=== PATIENT | male | born 1980 | race Caucasian/White ===

== ENCOUNTER 2016-10-09 13:38 | Inpatient (IN) | payer MEDICARE, OTHER ==
[~2016-10-09] VITALS: Ht 167.6 cm; Wt 87.2 kg
[2016-10-09 13:46] VITALS: BP 114/69; PULSE 132; RESP 20; TEMP 98.7; O2SAT 95
[2016-10-09 13:54] VITALS: BP 114/69; PULSE 127; RESP 18; TEMP 98.7; O2SAT 96
[2016-10-09] MEDS ORDERED: LORazepam 2 MG/ML VIAL IV ONE (14:00)
[2016-10-09] MEDS ORDERED: HALOPERIDOL LACTATE 5 MG/ML AMP IM ONE (14:00)
--- NOTE | 2016-10-09 14:07 | PD ---
HPI Chief Complaint: Psychiatric Symptoms Time Seen by Provider: 13:44 Travel History International Travel<30 days: No Contact w/Intl Traveler<30days: No Traveled to known affect area: No History of Present Illness HPI The patient is a 36-year-old male who presents to the emergency department via EMS as a Clay act. According to the police affidavit the patient was at home, stating that he saw his father and the picture of Martin. The patient was acting erratically, therefore, the patient's mother and her boyfriend called the police. The police state when they arrived the patient was somewhat disruptive, yelling for his father to come out of the picture. The patient does state that his father is alive, was in the picture of Martin, and was able to move the pictures eyes. The patient denies any history of schizophrenia, hallucinations, or previous delusions. The patient does have a history of seizures, had his last seizure at 5 AM according to the police, from the mother' s report. The patient does take Dilantin for a history of seizures. The patient denies any physical complaints except for right sided deficit secondary to cerebral palsy. He denies any acute chest pain, shortness breath, nausea, vomiting, or abdominal pain. He received Ativan 2 mg IM by EMS prior to arrival , however, upon arrival the patient is still yelling and declaring that his father was in the picture of Martin. PFSH Past Medical History Seizures: Yes Tetanus Vaccination: > 5 Years Influenza Vaccination: Yes ?: Not Social History Alcohol Use: No Tobacco Use: No Substance Use: Yes (MARIJUANA) Allergies-Medications (Allergen,Severity, Reaction): Coded Allergies: No Known Allergies (Unverified , 10/09/16) Review of Systems Except as stated in HPI: all other systems reviewed are Neg General / Constitutional: No: Fever HENT: No: Lightheadedness Cardiovascular: No: Chest Pain or Discomfort Respiratory: No: Shortness of Breath Gastrointestinal: No: Nausea, Vomiting, Abdominal Pain Musculoskeletal: No: Weakness Neurologic: Positive: Change in Mentation, Seizures Psychiatric: Positive: Other (patient is having hallucinations/delusions that his father is in a picture of Martin) Physical Exam Narrative GENERAL: Awake, alert, nontoxic-appearing 36-year-old male who appears his stated age and does appear somewhat psychotic. SKIN: Warm and dry. HEAD: Atraumatic. Normocephalic. EYES: Pupils equal and round. Pupils are 3 mm bilateral and reactive. ENT: No nasal bleeding or discharge. Mucous membranes pink and moist. NECK: Trachea midline. No JVD. CARDIOVASCULAR: Regular, tachycardic with a heart rate of 120. RESPIRATORY: No accessory muscle use. Clear to auscultation. Breath sounds equal bilaterally. GASTROINTESTINAL: Abdomen soft, non-tender, nondistended. No rebound tenderness. MUSCULOSKELETAL: The right wrist is flexed, he is unable to extend it. NEUROLOGICAL: Awake and alert. No obvious cranial nerve deficits. Motor grossly within normal limits. Normal speech. PSYCHIATRIC: Appears somewhat psychotic. Declined that his father is a coward and in picture of Martin. Data Data Last Documented VS Vital Signs Date Time Temp Pulse Resp B/P Pulse Ox O2 Delivery O2 Flow Rate FiO2 10/09/16 15:09 101 18 108/67 96 Room Air 10/09/16 13:54 98.7 Orders Complete Blood Count With Diff (10/09/16 13:58) Comprehensive Metabolic Panel (10/09/16 13:58) Thyroid Stimulating Hormone (10/09/16 13:58) Urinalysis - C+S If Indicated (10/09/16 13:58) Drug Screen, Random Urine (10/09/16 13:58) Electrocardiogram (10/09/16 13:58) Iv Access Insert/Monitor (10/09/16 13:58) Ecg Monitoring (10/09/16 13:58) Phenytoin (Dilantin) (10/09/16 13:58) Psych Screen (10/09/16 13:58) Haloperidol Inj (Haldol Inj) (10/09/16 14:00) Lorazepam Inj (Ativan Inj) (10/09/16 14:00) Ct Brain W/O Iv Contrast(Rout) (10/09/16 ) Sodium Chlor 0.9% 1000 Ml Inj (Ns 1000 M (10/09/16 15:30) Creatine Kinase (Cpk) (10/09/16 15:31) Labs Laboratory Tests Test 10/09/16 14:11 White Blood Count 16.4 TH/MM3 Red Blood Count 5.39 MIL/MM3 Hemoglobin 16.4 GM/DL Hematocrit 47.8 % Mean Corpuscular Volume 88.6 FL Mean Corpuscular Hemoglobin 30.4 PG Mean Corpuscular Hemoglobin 34.3 % Concent Red Cell Distribution Width 13.3 % Platelet Count 234 TH/MM3 Mean Platelet Volume 8.9 FL Neutrophils (%) (Auto) 88.3 % Lymphocytes (%) (Auto) 4.9 % Monocytes (%) (Auto) 6.2 % Eosinophils (%) (Auto) 0.1 % Basophils (%) (Auto) 0.5 % Neutrophils # (Auto) 14.5 TH/MM3 Lymphocytes # (Auto) 0.8 TH/MM3 Monocytes # (Auto) 1.0 TH/MM3 Eosinophils # (Auto) 0.0 TH/MM3 Basophils # (Auto) 0.1 TH/MM3 CBC Comment DIFF FINAL Differential Comment Sodium Level 142 MEQ/L Potassium Level 3.9 MEQ/L Chloride Level 106 MEQ/L Carbon Dioxide Level 20.8 MEQ/L Anion Gap 15 MEQ/L Blood Urea Nitrogen 18 MG/DL Creatinine 2.06 MG/DL Estimat Glomerular Filtration 37 ML/MIN Rate Random Glucose 158 MG/DL Calcium Level 9.2 MG/DL Total Bilirubin 0.4 MG/DL Aspartate Amino Transf 24 U/L (AST/SGOT) Alanine Aminotransferase 38 U/L (ALT/SGPT) Alkaline Phosphatase 124 U/L Total Creatine Kinase 285 U/L Total Protein 8.1 GM/DL Albumin 4.4 GM/DL Thyroid Stimulating Hormone 0.972 uIU/ML 3rd Gen Phenytoin (Dilantin) Level 9.8 MCG/ML MDM Medical Decision Making Medical Screen Exam Complete: Yes Emergency Medical Condition: Yes Medical Record Reviewed: Yes Interpretation(s) EKG reveals sinus tachycardia with a heart rate of 116. Nonspecific ST-T wave changes. Last Impressions Head CT 10/09/16 0000 Signed Impressions: Service Date/Time: Sunday, October 09, 2016 14:28 - CONCLUSION: No acute intracranial process. Abnormal area of encephalomalacia with accompanying dilatation of the left lateral ventricle in the left parietal deep white matter extending into the basal ganglia most likely secondary to remote insult. Chuckie Coreas MD Laboratory Tests Test 10/09/16 14:11 White Blood Count 16.4 TH/MM3 Red Blood Count 5.39 MIL/MM3 Hemoglobin 16.4 GM/DL Hematocrit 47.8 % Mean Corpuscular Volume 88.6 FL Mean Corpuscular Hemoglobin 30.4 PG Mean Corpuscular Hemoglobin 34.3 % Concent Red Cell Distribution Width 13.3 % Platelet Count 234 TH/MM3 Mean Platelet Volume 8.9 FL Neutrophils (%) (Auto) 88.3 % Lymphocytes (%) (Auto) 4.9 % Monocytes (%) (Auto) 6.2 % Eosinophils (%) (Auto) 0.1 % Basophils (%) (Auto) 0.5 % Neutrophils # (Auto) 14.5 TH/MM3 Lymphocytes # (Auto) 0.8 TH/MM3 Monocytes # (Auto) 1.0 TH/MM3 Eosinophils # (Auto) 0.0 TH/MM3 Basophils # (Auto) 0.1 TH/MM3 CBC Comment DIFF FINAL Differential Comment Sodium Level 142 MEQ/L Potassium Level 3.9 MEQ/L Chloride Level 106 MEQ/L Carbon Dioxide Level 20.8 MEQ/L Anion Gap 15 MEQ/L Blood Urea Nitrogen 18 MG/DL Creatinine 2.06 MG/DL Estimat Glomerular Filtration 37 ML/MIN Rate Random Glucose 158 MG/DL Calcium Level 9.2 MG/DL Total Bilirubin 0.4 MG/DL Aspartate Amino Transf 24 U/L (AST/SGOT) Alanine Aminotransferase 38 U/L (ALT/SGPT) Alkaline Phosphatase 124 U/L Total Creatine Kinase 285 U/L Total Protein 8.1 GM/DL Albumin 4.4 GM/DL Thyroid Stimulating Hormone 0.972 uIU/ML 3rd Gen Phenytoin (Dilantin) Level 9.8 MCG/ML Differential Diagnosis Differential diagnosis includes psychosis, encephalitis, meningitis, paranoid schizophrenia, substance induced mood disorder, Dilantin toxicity, frontal lobe tumor. Narrative Course IV was established, labs are drawn and sent, and the patient was placed on cardiac telemetry monitoring and continuous pulse oximetry monitoring. EKG was ordered and interpreted. The patient received Ativan 2 mg intravenously and Haldol [address] of the brain was ordered. Psychiatric evaluation was ordered. CT the brain reveals chronic changes and questionable remote infarct, encephalomalacia, but no acute findings. Lab work is unremarkable except for mildly elevated creatinine at 2.06. CPK was ordered, 285, no evidence of rhabdomyolysis. The patient was administered IV fluids. The patient's heart rate did come down into the 90s. Patient is medically cleared to be evaluated by psychiatry. Disposition as per psych. Diagnosis Primary Impression: Psychosis Qualified Code: F29 - Psychosis, unspecified psychosis type Additional Impression: Acute kidney injury Condition: Stable Jefry Nuno MD Oct 09, 2016 14:07
[2016-10-09 14:29] LABS: AUTOMATED NEUTROPHIL # 14.5 TH/MM3 (1.8-7.7); BASOPHIL # 0.1 TH/MM3 (0-0.2); BASOPHIL % 0.5 % (0.0-2.0); EOSINOPHIL % 0.1 % (0.0-4.0); HEMATOCRIT 47.8 % (39.0-51.0); HEMO FLAGS DIFF FINAL; LYMPH % 4.9 % (9.0-44.0); LYMPHOCYTE # 0.8 TH/MM3 (1.0-4.8); MEAN CELL VOLUME 88.6 FL (80.0-100.0); MEAN CORPUSCULAR HEMOGLOBIN 30.4 PG (27.0-34.0); MEAN CORPUSCULAR HGB CONC 34.3 % (32.0-36.0); MONO % 6.2 % (0.0-8.0); NEUT % 88.3 % (16.0-70.0); PLATELET COUNT 234 TH/MM3 (150-450); RED BLOOD COUNT 5.39 MIL/MM3 (4.50-5.90); RED CELL DISTRIBUTION WIDTH 13.3 % (11.6-17.2); WHITE BLOOD COUNT 16.4 TH/MM3 (4.0-11.0)
[2016-10-09 14:57] LABS: ALT (GPT) 38 U/L (12-78); ANION GAP 15 MEQ/L (5-15); AST (GOT) 24 U/L (15-37); BICARBONATE 20.8 MEQ/L (21.0-32.0); BLOOD UREA NITROGEN 18 MG/DL (7-18); CHLORIDE 106 MEQ/L (98-107); GLOMERULAR FILTRATION RATE 37 ML/MIN (>89); SODIUM (NA) 142 MEQ/L (136-145)
--- NOTE | 2016-10-09 15:03 | RADRPT ---
EXAM DATE/TIME: 10/09/2016 14:28 [facility] COMPARISON: No previous studies available for comparison. INDICATIONS : Altered mental status after possible seizure today. RADIATION DOSE: 56.35 CTDIvol (mGy) MEDICAL HISTORY : Seizures. SURGICAL HISTORY : None. ENCOUNTER: Initial ACUITY: 1 day PAIN SCALE: Non-responsive LOCATION: cranial TECHNIQUE: Multiple contiguous axial images were obtained of the head. Using automated exposure control and adj ustment of the mA and/or kV according to patient size, radiation dose was kept as low as reasonably a chievable to obtain optimal diagnostic quality images. FINDINGS: B. midline structures and major anatomic landmarks are correctly situated with no evidence of intracr anial hemorrhage extracerebral defect mass or acute infarct. There is an area of encephalomalacia low density in the paraventricular region deep white matter of the left hemisphere parietal region with asymmetric dilatation of the left lateral ventricle and extension into the potential region of the ex ternal capsule of the left basal ganglia. This appears to represent a remote insult with secondary en cephalomalacia. CONCLUSION: No acute intracranial process. Abnormal area of encephalomalacia with accompanying dilatation of the left lateral ventricle in the left parietal deep white matter extending into the basal ganglia most l ikely secondary to remote insult. Chuckie Coreas MD on October 09, 2016 at 15:00 Board Certified Radiologist. This report was verified electronically.
[2016-10-09 15:05] LABS: ALKALINE PHOSPHATASE 124 U/L (45-117); TOTAL BILIRUBIN ADULT 0.4 MG/DL (0.2-1.0)
[2016-10-09 15:09] VITALS: BP 108/67; PULSE 101; RESP 18; O2SAT 96
[2016-10-09 15:09] LABS: POTASSIUM 3.9 MEQ/L (3.5-5.1)
[2016-10-09] MEDS ORDERED: SODIUM CHLOR 0.9% 1000 ML INJ 1,000 ML IV ONE (15:30)
[2016-10-09] MEDS ORDERED: LORazepam 2 MG/ML VIAL IV PUSH ONE (17:15)
[2016-10-09 18:13] LABS: BLOOD, URINE SMALL (NEG); COMMENT (UR) CULT NOT INDICATED; CULTURE IF INDICATED CULT NOT INDICATED; GLUCOSE,URINE NEG (NEG); KETONE, URINE TRACE mg/dL (NEG); MUCUS URINE MANY /lpf (OCC); NITRITE,URINE NEG (NEG); PH, URINE 5.5 (5.0-8.5); SQUAMOUS EPITHELIAL CELL URINE <1 /hpf (0-5); URINE COLOR YELLOW (YELLW/STRAW)
[2016-10-09 18:16] LABS: AMPHETAMINE, URINE NEG (NEG); BARBITURATES, URINE NEG (NEG); COCAINE, URINE NEG (NEG)
[2016-10-09 18:35] VITALS: BP 114/87; PULSE 110; RESP 20; TEMP 98.3; O2SAT 98
[2016-10-09] MEDS ORDERED: PHEN100C PO (18:42)
[2016-10-09 22:36] VITALS: BP 122/59; PULSE 96; RESP 18; TEMP 97.1; O2SAT 98
[2016-10-10] MEDS ORDERED: LORazepam 2 MG/ML VIAL IM ONE (02:00)
[2016-10-10] MEDS ORDERED: HALOPERIDOL LACTATE 5 MG/ML AMP IM ONE (02:00)
[2016-10-10 02:36] VITALS: BP 173/70; PULSE 117; RESP 19; TEMP 97.8; O2SAT 98
[2016-10-10 06:00] VITALS: BP 148/71; PULSE 95; RESP 18; O2SAT 98
--- NOTE | 2016-10-10 13:37 | EKG ---
Date Performed: 10/09/2016 Time Performed: 14:07:35 PTAGE: 36 years EKG: SINUS TACHYCARDIA NONSPECIFIC ST & T-WAVE ABNORMALITY CLINICAL CORRELATION RECOMMENDED ABNO RMAL RHYTHM ECG NO PREVIOUS TRACING DOCTOR: Jonatan Hart Interpretating Date/Time 10/10/2016 13:35:58
--- NOTE | 2016-10-10 13:44 | PD ---
History of Present Illness Chief Complaint: Psychiatric Symptoms Time Seen by Provider: 13:00 Travel History International Travel<30 Days: No Contact w/Intl Traveler<30days: No Known affected area: No Legal Status Legal Status: Clay Act Clay Act Signed By: Signed by [place] [employer] Officer Yovanny Payton # [id number]. Clay Act Comment: Signed by [employer] Officer Yovanny Payton # [id number]. History of Present Illness: History of Present Illness The patient is a 36-year-old male with no psychiatric history and history of cerebral palsy and seizure disorder who presents to the emergency department via EMS as a Clay act. The patient was acting erratically, therefore, the patient's mother and her boyfriend called the police. According to the police affidavit the patient was at home, stating that he saw his father and the picture of Martin. The police state when they arrived the patient was somewhat disruptive, yelling for his father to come out of the picture. As per ED documentation " The patient does state that his father is alive, was in the picture of Martin, and was able to move the pictures eyes. He received Ativan 2 mg IM by EMS prior to arrival, however, upon arrival the patient is still yelling and declaring that his father was in the picture of Martin" This patient has required emergency medications x 2 since being in ED due to agitation and potential to harm self. He has required restraints as well. Patient is seen in J pod. Asleep but awakens easily. Disheveled appearance in hospital attire. He is verbal, oriented. He states " I want to know what is happening?. He continues to talk about being the son of Martin and that " Sofia and Martin are white and they are my parents". He states that he was at home and " I was looking on the computer at something and then things happened. states he was looking at pictures of little girls. He also states that " I started to talk to the picture of Martin and it's my father and I can see the lips moving and he can hear what I say". So is a+ b = c? Then c+d=e? " As per EMR there is no prior contact with [facility] psychiatry. negative toxicology but hx of marijuana use. Staff have contacted his mother who report that on the day of admission he was talking to the picture of Martin and asking him" why he had done these these things". as well as taking his clothes off, walking on the floor on his knees. PFSH Past Medical History Seizures: Yes Tetanus Vaccination: > 5 Years Influenza Vaccination: Yes ?: Not Psychiatric History Psychiatric History Hx Psychiatric Treatment: States that he has been seen by psychiatrists before but cannot remember where or why. History of Inpatient Treatment: Yes (unable to verify) Guns or firearms in home: No Social History Single unemployed male who is living with his mother and her boyfriend. Hx Alcohol Use: No Hx Tobacco Use: No Hx Substance Use: Yes (Pt states has not smoked marijuanna in apprxo 3 weeks.) Substance Use Type: Marijuana Hx of Substance Use Treatment: No Family Psychiatric History unknown Allergies-Medications (Allergen,Severity, Reaction): Coded Allergies: No Known Allergies (Unverified , 10/09/16) Per mother - Zulemadevan Garcia [phone]. Reported Meds & Prescriptions Reported Meds & Active Scripts Active Reported Phenytoin Extended 100 Mg Cap 400 Mg PO DAILY Review of Systems Constitutional: DENIES: Diaphoretic episodes, Fatigue, Fever, Weight gain, Weight loss, Chills, Dizziness, Change in appetite, Night Sweats Endocrine: DENIES: Heat/cold intolerance, Polydipsia, Polyuria, Polyphagia Eyes: DENIES: Blurred vision, Diplopia, Eye inflammation, Eye pain, Vision loss , Photosensitivity, Double Vision Ears, nose, mouth, throat: DENIES: Tinnitus, Hearing loss, Vertigo, Nasal discharge, Oral lesions, Throat pain, Hoarseness, Ear Pain, Running Nose, Epistaxis, Sinus Pain, Toothache, Odynophagia Respiratory: DENIES: Apneas, Cough, Snoring, Wheezing, Hemoptysis, Sputum production, Shortness of breath Cardiovascular: DENIES: Chest pain, Palpitations, Syncope, Dyspnea on Exertion , PND, Lower Extremity Edema, Orthopnea, Claudication Gastrointestinal: DENIES: Abdominal pain, Black stools, Bloody stools, Constipation, Diarrhea, Nausea, Vomiting, Difficulty Swallowing, Anorexia Genitourinary: DENIES: Sexual dysfunction, Urinary frequency, Urinary incontinence, Urgency, Hematuria, Dysuria, Nocturia, Penile Discharge, Testicular Pain, Testicular Swelling Musculoskeletal: COMPLAINS OF: Muscle aches, Back pain Integumentary: DENIES: Abnormal pigmentation, Nail changes, Pruritus, Rash Hematologic/lymphatic: DENIES: Bruising, Lymphadenopathy Immunologic/allergic: DENIES: Eczema, Urticaria Neurologic: COMPLAINS OF: Abnormal gait Psychiatric: COMPLAINS OF: Hallucinations, Agitation, Delusions Exam Alert: Yes [place]: Person, Place Mood: Calm Affect: Other (variable) Speech: Clear, Slurred (slight slurred. ) Eye Contact: Normal Memory Intact: Comment (not tested) Hallucinations: Auditory, Visual Delusions: Yes Delusion Type: Other (roman catholic) Suicidal: Ideation (deneis any) Homicidal: Ideation (deneis any) Insight/Judgement poor. poor MDM Medical Decision Making Medical Record Reviewed: Yes Assessment/Plan 36 year old male with hx of seizure disorder, cerebral palsy who resents to ED under a BA after he became agitated at home. he has been insisting that he is the son of Elma, that he can talk with them, that the picture on the wall can talk, Mother reports this occurred within 24 of visit to ED. Tai has been agitated in ED and has required both medications and restraints.At this time inpatient psychiatric tretametn is recommended in order to evaluate, treat and maintain safety. Orders Complete Blood Count With Diff (10/09/16 13:58) Comprehensive Metabolic Panel (10/09/16 13:58) Thyroid Stimulating Hormone (10/09/16 13:58) Urinalysis - C+S If Indicated (10/09/16 13:58) Drug Screen, Random Urine (10/09/16 13:58) Electrocardiogram (10/09/16 13:58) Iv Access Insert/Monitor (10/09/16 13:58) Ecg Monitoring (10/09/16 13:58) Phenytoin (Dilantin) (10/09/16 13:58) Psych Screen (10/09/16 13:58) Haloperidol Inj (Haldol Inj) (10/09/16 14:00) Lorazepam Inj (Ativan Inj) (10/09/16 14:00) Ct Brain W/O Iv Contrast(Rout) (10/09/16 ) Sodium Chlor 0.9% 1000 Ml Inj (Ns 1000 M (10/09/16 15:30) Creatine Kinase (Cpk) (10/09/16 15:31) Lorazepam Inj (Ativan Inj) (10/09/16 17:15) ^ 1:1 Precautions (10/09/16 19:31) Vital Signs (Adult) DESTINY.Q4H (10/09/16 19:34) ^ Seizure Precautions (10/09/16 19:34) Haloperidol Inj (Haldol Inj) (10/10/16 02:00) Lorazepam Inj (Ativan Inj) (10/10/16 02:00) Restraints Violent (10/10/16 03:54) Diet Regular Basic (10/10/16 Breakfast) Diet Regular Basic (10/10/16 Lunch) Results Vital Signs Date Time Temp Pulse Resp B/P Pulse Ox O2 Delivery O2 Flow Rate FiO2 10/10/16 06:00 95 18 148/71 98 10/10/16 02:36 97.8 117 19 173/70 98 Room Air 10/09/16 22:36 97.1 96 18 122/59 98 Room Air 10/09/16 18:35 98.3 110 20 114/87 98 Room Air 10/09/16 15:09 101 18 108/67 96 Room Air 10/09/16 13:54 98.7 127 18 114/69 96 Room Air 10/09/16 13:46 98.7 132 20 114/69 95 Laboratory Tests Test 10/09/16 10/09/16 14:11 17:40 White Blood Count 16.4 Red Blood Count 5.39 Hemoglobin 16.4 Hematocrit 47.8 Mean Corpuscular Volume 88.6 Mean Corpuscular Hemoglobin 30.4 Mean Corpuscular Hemoglobin 34.3 Concent Red Cell Distribution Width 13.3 Platelet Count 234 Mean Platelet Volume 8.9 Neutrophils (%) (Auto) 88.3 Lymphocytes (%) (Auto) 4.9 Monocytes (%) (Auto) 6.2 Eosinophils (%) (Auto) 0.1 Basophils (%) (Auto) 0.5 Neutrophils # (Auto) 14.5 Lymphocytes # (Auto) 0.8 Monocytes # (Auto) 1.0 Eosinophils # (Auto) 0.0 Basophils # (Auto) 0.1 CBC Comment DIFF FINAL Differential Comment Sodium Level 142 Potassium Level 3.9 Chloride Level 106 Carbon Dioxide Level 20.8 Anion Gap 15 Blood Urea Nitrogen 18 Creatinine 2.06 Estimat Glomerular Filtration 37 Rate Random Glucose 158 Calcium Level 9.2 Total Bilirubin 0.4 Aspartate Amino Transf 24 (AST/SGOT) Alanine Aminotransferase 38 (ALT/SGPT) Alkaline Phosphatase 124 Total Creatine Kinase 285 Total Protein 8.1 Albumin 4.4 Thyroid Stimulating Hormone 0.972 3rd Gen Phenytoin (Dilantin) Level 9.8 Urine Color YELLOW Urine Turbidity CLOUDY Urine pH 5.5 Urine Specific [place] 1.027 Urine Protein 100 Urine Glucose (UA) NEG Urine Ketones TRACE Urine Occult Blood SMALL Urine Nitrite NEG Urine Bilirubin NEG Urine Urobilinogen LESS THAN 2.0 Urine Leukocyte Esterase NEG Urine RBC 1 Urine WBC 2 Urine Squamous Epithelial <1 Cells Urine Mucus MANY Microscopic Urinalysis Comment CULT NOT INDICATED Urine Opiates Screen NEG Urine Barbiturates Screen NEG Urine Amphetamines Screen NEG Urine Benzodiazepines Screen NEG Urine Cocaine Screen NEG Urine Cannabinoids Screen NEG Diagnosis Primary Impression: Psychosis Additional Impression: Acute kidney injury Admitting Information Admitting Physician Requests: Admit (Dr. Yuen) Condition: Stable Problem Qualifiers Primary Impression: Psychosis Qualified Code: F29 - Psychosis, unspecified psychosis type Gabby Fung Oct 10, 2016 13:44
[2016-10-10] MEDS ORDERED: MAGNESIUM HYDROXIDE SUSP 30 ML CUP PO PRN (14:15)
[2016-10-10] MEDS: ACETAMINOPHEN 325 MG TAB PO PRN ×2 (14:50→20:28)
[2016-10-10 15:27] VITALS: BP 148/71; PULSE 95; RESP 18; O2SAT 98
[2016-10-10 16:35] VITALS: BP 132/90; PULSE 114; RESP 20; TEMP 98.5; O2SAT 99
[2016-10-10 16:36] VITALS: BP 132/90; PULSE 111; TEMP 98.4
[2016-10-10] MEDS ORDERED: PHENYTOIN SODIUM 100 MG CAP PO STA (18:41)
[2016-10-10] MEDS ORDERED: OLANZapine IM 10 MG VIAL IM ONE (23:00)
[2016-10-10] MEDS ORDERED: diphenhydrAMINE HCL 50 MG/ML VIAL IM ONE (23:00)
[2016-10-11] MEDS ORDERED: OLANZapine IM 10 MG VIAL IM ONE (06:45)
[2016-10-11] MEDS ORDERED: diphenhydrAMINE HCL 50 MG/ML VIAL IM ONE (06:45)
[2016-10-11] MEDS ORDERED: PHENYTOIN SODIUM 100 MG CAP PO SCH (09:00)
[2016-10-11] MEDS ORDERED: BENZTROPINE MESYLATE 2 MG/2 ML VIAL IM PRN (09:30)
[2016-10-11] MEDS ORDERED: diphenhydrAMINE HCL 50 MG CAP PO PRN (09:30)
[2016-10-11] MEDS ORDERED: LORazepam 2 MG/ML VIAL IM PRN (09:30)
[2016-10-11] MEDS ORDERED: BENZTROPINE MESYLATE 1 MG TAB PO PRN (09:30)
--- NOTE | 2016-10-11 10:11 | MH ---
cc: MARCIAL HOLLIDAY MD DATE OF ADMISSION: 10/10/2016 ADMITTING DIAGNOSIS I. Other psychotic disorder, F28. Rule out postictal psychosis, rule out primary psychotic disorder, rule out psychotic disorder due to general medical condition. LEGAL STATUS The patient is presently involuntary and is not capacitated to consent for medications. I have initiated a petition for involuntary psychiatric hospitalization and will request a health care surrogate and guardian advocate. HISTORY OF PRESENT ILLNESS Mr. Garcia is a 36-year-old male with a history of cerebral palsy and seizure disorder but no known past psychiatric history, who presents under a [place] Act by the [place] [employer] alleging that officers responded to a home regarding a disturbance. When the officer endeavored to speak with the patient he screamed and yelled at a picture of Martin on the wall. He said that Martin was his father. He physically resisted the officers. The patient was brought to the psychiatric emergency room and was evaluated by the ED provider as well as the psychiatric nurse practitioner who noted that he was fairly disorganized and recommended admission to the inpatient psychiatric unit. The electronic medical record is reviewed. The patient is seen and examined. The case is discussed with the nurse on the inpatient psychiatric unit. Since arrival on the unit the patient has been persistently agitated and has had to be medicated twice with Zyprexa 10 mg IM along with Benadryl. He had to be placed into locked seclusion this morning because of his ongoing agitation. Just shortly prior to my evaluation, the [facility] informed me that the patient was able to get hold of a rubber glove and tried to insert it into his mouth and swallow it and he had to be temporarily restrained in order to remove the glove from his throat. At the time of my evaluation I note the patient is frankly internally stimulated looking out the window expectantly and talking to himself. He says that he is here because of "a mischarge." He is tending to minimize his psychiatric symptoms but is quite irritable. He denies any ADH. No SI or HI, but the patient is definitely unreliable to contract for safety. He is fairly suspicious and guarded. Regarding the allegations in the [place] Act the patient merely says "I just believe in God." He denies any mood issues. Psychiatric interview is somewhat limited because of the patient's degree of psychiatric impairment. PAST PSYCHIATRIC HISTORY The patient denies a history of psychiatric diagnoses. He says that he has only seen a psychiatrist in the past "for bullshit charges." He denies a history of psychiatric admissions or suicide attempts. FAMILY HISTORY The patient denies a family history of psychiatric illness. CHEMICAL DEPENDENCY HISTORY The patient denies a history of abuse, drugs or alcohol. He denies any use of synthetic drugs. SOCIAL HISTORY The patient describes his living situation as "fine" and then goes on tirade about how he does not belong in the psychiatric hospital. He is single with no children. He is high school educated. He denies any or legal history. PAST MEDICAL HISTORY Includes a history of cerebral palsy and seizure disorder on Dilantin. MEDICATIONS Outpatient medications include Dilantin 400 mg daily. ALLERGIES No known allergies. REVIEW OF SYSTEMS A review of systems is fairly limited because of the patient's degree of psychiatric impairment. He does not describe any headache, vision or hearing changes, chest pain, shortness of breath, bowel or bladder issues. No other somatic complaints reported. PHYSICAL EXAMINATION Physical examination was completed in the emergency room by the ER staff and the patient was medically cleared. On my examination today, the patient appears to be in no acute physical distress. No abnormal motor movements noted. Labs and vital signs reviewed. I note that the patient's CBC is significant for a mild leukocytosis at 16.4. His CMP is remarkable for decreased GFR of 37 as well as an elevated glucose of 158. His alkaline phosphatase is 124. His CK is 285. His Dilantin level is 9.8. His toxicology is negative. His urinalysis has 100 protein and small occult blood as well as trace ketones but no leukocyte esterase or nitrites or white blood cells. A head CT performed in the emergency department reveals dilatation of the left lateral ventricle with underlying encephalomalacia extending into the basal ganglia, likely secondary to remote insult per the report. MENTAL STATUS EXAMINATION The patient is in a hospital gown. He is quite disheveled and malodorous. He does not appear to be maintaining basic hygiene. He is awake and alert and oriented to person only. No abnormal motor movements noted. Language and fund of knowledge are difficult to assess because of his degree of psychiatric impairment and may be somewhat impaired. Mood is quite irritable and affect is restricted and dysphoric. Thought process is perseverative on discharge. He is quite suspicious and guarded and there may be some underlying paranoia. He is frankly internally stimulated although he denies ADH. He does not describe any suicidal or homicidal ideation but is doubtless unreliable to contract for safety in his present state. His insight and judgment are presently quite poor. ASSESSMENT AND PLAN This is a 36-year-old male with uncertain past psychiatric history, who presents under a [place] Act. Since arrival in the emergency department the patient has been quite agitated and has required extensive p.r.n. medications for the management of agitation. He is presently in locked seclusion because of his agitation and has recently tried to swallow a rubber glove. At the time of my evaluation the patient is floridly psychotic. Reviewing the ED provider notes it does appear that the patient may have had a recent seizure, and so the question of postictal psychosis must be entertained. He also has a leukocytosis and so I suppose there is the possibility also of a psychosis due to a general medical condition. Nonetheless, the patient remains quite psychotic and agitated and requires psychiatric admission at this time for safety, observation and stabilization. I will plan to admit the patient to the inpatient psychiatric unit. Involuntary status, and I have completed a petition for involuntary psychiatric hospitalization and will consult for a second opinion. I will request a health care surrogate and guardian advocate. I have continued his Dilantin and will request a neurological consultation. I will also request a hospitalist consultation for his leukocytosis to rule out a medical cause for his psychosis. Seizure precautions are in place. For his ongoing agitation I will provide him with Thorazine 50 mg IM now and reassess. If he tolerates this medication well and shows some improvement from it, we could consider initiating rapid tranquilization protocol with Thorazine. Otherwise, Ativan as needed for agitation, Cogentin as needed for any EPS, Benadryl as needed for sleep. Vitals every shift. Counselor to see. Disposition planning. Estimated length of stay: Unclear at present but at least 7-9 days most likely to stabilize his psychosis. ADDENDUM: I did try to call pt's mother at the number in EMR and left a VM requesting a call back. Spoke with RN, who reports pt is now calm following administration of Thorazine IM. What I will therefore do is start Thorazine 50mg q1hour PRN agitation, and I can calculate his 24 hour Thorazine requirement tomorrow and administer this in a scheduled dose. Marcial Holliday DC/DEREK /9:33 AM /9:47 AM OBDULIO
--- NOTE | 2016-10-11 12:41 | PD.CONS ---
Provisional Diagnosis Admission Date Oct 10, 2016 at 14:08 History of Present Illness Service Psychiatry Consult Requested By Primary Care Physician No Primary Care Physician HPI Patient is a 36-year-old white male admitted to Dr. Jett holliday service under the [place] act chart reviewed patient revrayo patient seen in quite room with nurse Valerie, patient is somewhat sedated from be given and ETO is arousable to somewhat superficial irritable and delusional. Dr. Holliday signed first opinion petition supporting Clay act. I agree. Patient meets criteria for involuntary psychiatric hospitalization under the Clay act thus I' ll cosign second opinion petition supporting Clay act Past Family Social History Coded Allergies: No Known Allergies (Unverified , 10/09/16) Per mother - Zulema Garcia [phone]. Reported Medications Phenytoin Extended 100 Mg Vtd446 Mg PO DAILY #90 CAP Ref 0 10/09/16 Current Medications Medications (Trade) Dose Ordered Sig/Adams Route Start Time Stop Time Status Last Admin (Tylenol) 650 mg Q4H PRN PO 10/10/16 14:15 10/10/16 20:28 (Milk Of Magnesia Liq) 30 ml DAILY PRN PO 10/10/16 14:15 (Mag-Al Plus Susp Liq) 30 ml Q6H PRN PO 10/10/16 14:15 (Dilantin) 400 mg DAILY PO 10/11/16 09:00 10/10/16 18:45 (Ativan) 2 mg Q6H PRN PO 10/11/16 09:30 (Ativan Inj) 2 mg Q6H PRN IM 10/11/16 09:30 (Cogentin Inj) 1 mg Q12HR PRN IM 10/11/16 09:30 (Cogentin) 1 mg Q12HR PRN PO 10/11/16 09:30 (Benadryl) 50 mg HS PRN PO 10/11/16 09:30 Physical Exam Vital Signs Vital Signs Date Time Temp Pulse Resp B/P Pulse Ox O2 Delivery O2 Flow Rate FiO2 10/10/16 16:36 98.4 111 132/90 10/10/16 16:35 20 99 10/10/16 15:27 Room Air I/O 10/10/16 10/10/16 10/11/16 08:00 16:00 00:00 Intake Total 250 ml Balance 250 ml Mental Status Examination Patient is somewhat sedated for arousable but uncooperative Appearance Patient disheveled and malodorous Speech: Other (patient not verbally responsive somewhat sedated from ETO) Orientation: Person Memory: Impaired (describe) (difficult to ascertain due to patient's sedation) Thought Process: Other ( psychotic) Thought Content: Unremarkable, Other Hallucination Type: None (difficult to ascertain due to patient sedation) Attention and Concentration: Other (poor) Suicidal Ideation: No (difficult to ascertain due to patient's sedation) Previous Suicide Attempts: No Homicidal Ideation: No (difficult to ascertain due to patient's sedation) Previous Homicide Attempts: No Insight: Poor Judgement: Poor Affect: Other (decreased range intensity secondary to sedation) Mood: Other (difficult to ascertain due to patient's sedation) Motor Activity: Normal gait (patient sedated) Assessment & Plan Problem List: (1) Psychosis ICD Code: F29 Assessment & Plan Estimated LOS: days Problem Qualifiers (1) Psychosis: Qualified Code: F29 - Psychosis, unspecified psychosis type Bobby Yuen MD Oct 11, 2016 12:41
--- NOTE | 2016-10-11 15:24 | PD.CONS ---
HPI Service [facility] Consult Requested By Psychiatry Reason for Consult Seizures Primary Care Physician No Primary Care Physician Diagnoses: History of Present Illness This is a 36-year-old male with history of cerebral palsy and seizure disorder presenting to the hospital Clay acted after patient was found to be confused, screaming and yelling at a picture of Martin. Patient presently sedated after being combative and belligerent this morning. No meaningful history cannot be taken from the patient. I tried to contact patient's mother Zulema but she did not pick and shovel worker. Patient is a poor historian. Review of Systems ROS Limitations: Poor Historian Past Family Social History Allergies: Coded Allergies: No Known Allergies (Unverified , 10/09/16) Per mother - Zulema Garcia [phone]. Past Medical History Cerebral palsy Seizures Past Surgical History Cannot be obtained. Family History No history of medical illness in the family. Social History Patient denies smoking, significant alcohol intake or use of any illicit drugs. Physical Exam Vital Signs Vital Signs Date Time Temp Pulse Resp B/P Pulse Ox O2 Delivery O2 Flow Rate FiO2 10/10/16 16:36 98.4 111 132/90 10/10/16 16:35 98.5 114 20 132/90 99 10/10/16 15:27 95 18 148/71 98 Room Air Physical Exam Not in distress, was sleeping but at the end of the interview, patient woke up and became combative. PERRL, pink conjunctiva Nose without bleeding Trachea midline. Tachycardic, regular rhythm, no murmurs gallops or rubs appreciated. Poor effort otherwise clear. Normal bowel sounds, soft, non-tender, nondistended, no guarding. Extremities without clubbing, cyanosis, or edema. No rash of generalized distribution. Left hand is swollen, allegedly, patient started punching the door earlier. Quality erythematous, no open wound, neurovascular intact. Sleeping, not cooperative, answers questions but difficult to understand. Moves extremities. Woke up and was combative, was able to ambulate without any problems. Result Diagram: 10/09/16 1411 10/09/16 1411 Assessment and Plan Assessment and Plan This is a 36-year-old male with history of seizures History of seizures-there is a question if patient's mental status is a post ictal manifestation, check EEG, continue Dilantin, restart home dose, would give an extra dose today and recheck Dilantin levels tomorrow. Neurology was consulted. Left hand swelling-likely secondary to physical trauma, no obvious deformities, check x-ray of the left hand and wrist. Tylenol for pain Acute renal failure on top of possible chronic kidney disease-?, Unknown baseline, recheck BMP tomorrow, encourage oral intake, urinalysis has mild proteinuria. Check ultrasound of the kidneys. Thank you very much for this consultation. We will follow along with you. Kana Dykes MD Oct 11, 2016 15:24
[2016-10-11] MEDS ORDERED: ACETAMINOPHEN 325 MG TAB PO PRN (16:00)
--- NOTE | 2016-10-11 16:08 | RADRPT ---
EXAM DATE/TIME: 10/11/2016 15:23 [facility] COMPARISON: No previous studies available for comparison. INDICATIONS : Left Hand Swelling. MEDICAL HISTORY : Seizures. SURGICAL HISTORY : None. ENCOUNTER: Initial ACUITY: 1 day PAIN SCORE: Non-responsive. LOCATION: Left Wrist. FINDINGS: Three view examination of the left hand demonstrates soft tissue swelling without evidence of disloca tion, or fracture. The carpal bones appear intact. The interphalangeal and metacarpophalangeal gabby nts are intact. Bony mineralization is normal. CONCLUSION: Soft tissue swelling. Otherwise negative. Chuckie Coreas MD on October 11, 2016 at 16:06 Board Certified Radiologist. This report was verified electronically.
[2016-10-11] MEDS: PHENYTOIN SODIUM 100 MG CAP PO ONE ×2 (19:21→20:50)
[2016-10-11 20:25] VITALS: BP 124/65; PULSE 106; RESP 16; TEMP 98.7; O2SAT 96
[2016-10-11 23:00] VITALS: BP 103/56; PULSE 101; RESP 18; TEMP 98.3; O2SAT 95
[2016-10-12 06:09] VITALS: BP 129/82; PULSE 115; RESP 18; TEMP 97.9; O2SAT 96
[2016-10-12 08:33] LABS: AUTOMATED NEUTROPHIL # 8.9 TH/MM3 (1.8-7.7); BASOPHIL # 0.1 TH/MM3 (0-0.2); BASOPHIL % 0.6 % (0.0-2.0); EOSINOPHIL # 0.1 TH/MM3 (0-0.4); EOSINOPHIL % 0.9 % (0.0-4.0); HEMATOCRIT 44.2 % (39.0-51.0); HEMO FLAGS DIFF FINAL; LYMPH % 17.4 % (9.0-44.0); LYMPHOCYTE # 2.1 TH/MM3 (1.0-4.8); MEAN CORPUSCULAR HEMOGLOBIN 30.6 PG (27.0-34.0); MEAN CORPUSCULAR HGB CONC 35.2 % (32.0-36.0); MONO % 8.6 % (0.0-8.0); NEUT % 72.5 % (16.0-70.0); PLATELET COUNT 170 TH/MM3 (150-450); RED BLOOD COUNT 5.08 MIL/MM3 (4.50-5.90); RED CELL DISTRIBUTION WIDTH 12.9 % (11.6-17.2); WHITE BLOOD COUNT 12.3 TH/MM3 (4.0-11.0)
[2016-10-12 09:13] LABS: LDL CHOLESTEROL 92 MG/DL (0-99)
[2016-10-12 09:16] LABS: BICARBONATE 26.1 MEQ/L (21.0-32.0); POTASSIUM 3.3 MEQ/L (3.5-5.1)
[2016-10-12] MEDS: PHENYTOIN SODIUM 100 MG CAP PO SCH (09:17)
[2016-10-12] MEDS: ALUMINUM/MAGNESIUM/SIMETH 30 ML CUP PO PRN (09:47)
--- NOTE | 2016-10-12 16:16 | HHI.PYPN ---
Subjective Remarks Patient seen and examined with nursing staff. Chart reviewed. Case discussed with nursing staff are reports patient's mental status is much improved today. He was noted to be calm and pleasant. On my examination today, the patient's thought process is logical and linear. He says "I've been going through a lot of stuff lately. My father has been stealing my check. I'm living with my mother. I think I just freaked out." He says that during his psychotic episode " everything in my head was going too fast." He denies any audiovisual hallucinations now. No SI or HI. He does report that he has been having a string of seizures lately. EEG is presently pending. Denies side effects from medications. No other issues noted. Conducted discussion with patient's mother Zulema over the phone [phone]. She reports that patient has no history of psychiatric illness but has had seizures since childhood. She notes that he has been having recurrent episodes of seizures lately, and the seizure morphology has reportedly changed, although she has some difficulty qualifying this for me. She emphasizes that she does not believe that she can manage the patient at home, even after I explained that it is possible that his behaviors would resolve if his seizures were under better control if this is indeed a postictal phenomenon. Review of Systems Other No physical complaints today Objective Alert: Yes [place]: Person, Place, Date Mood: Calm Affect: Other (Full and reactive) Memory Intact: Comment (not tested) Hallucinations: Other (Denies AVH) Delusions: No Delusion Type: Other (No delusional material) Suicidal: Ideation (Denies SI) Homicidal: Ideation (Denies HI) Insight/Judgement Fair Remarks No abnormal motor movements noted. Thought process linear. Speech within normal limits for rate, tone and volume. Labs Test 10/12/16 08:17 White Blood Count 12.3 TH/MM3 Red Blood Count 5.08 MIL/MM3 Hemoglobin 15.5 GM/DL Hematocrit 44.2 % Mean Corpuscular Volume 87.0 FL Mean Corpuscular Hemoglobin 30.6 PG Mean Corpuscular Hemoglobin 35.2 % Concent Red Cell Distribution Width 12.9 % Platelet Count 170 TH/MM3 Mean Platelet Volume 8.4 FL Neutrophils (%) (Auto) 72.5 % Lymphocytes (%) (Auto) 17.4 % Monocytes (%) (Auto) 8.6 % Eosinophils (%) (Auto) 0.9 % Basophils (%) (Auto) 0.6 % Neutrophils # (Auto) 8.9 TH/MM3 Lymphocytes # (Auto) 2.1 TH/MM3 Monocytes # (Auto) 1.1 TH/MM3 Eosinophils # (Auto) 0.1 TH/MM3 Basophils # (Auto) 0.1 TH/MM3 CBC Comment DIFF FINAL Differential Comment Sodium Level 139 MEQ/L Potassium Level 3.3 MEQ/L Chloride Level 103 MEQ/L Carbon Dioxide Level 26.1 MEQ/L Anion Gap 10 MEQ/L Blood Urea Nitrogen 10 MG/DL Creatinine 1.14 MG/DL Estimat Glomerular Filtration 73 ML/MIN Rate Random Glucose 187 MG/DL Calcium Level 8.3 MG/DL Triglycerides Level 148 MG/DL Cholesterol Level 192 MG/DL LDL Cholesterol 92 MG/DL HDL Cholesterol 70.0 MG/DL Cholesterol/HDL Ratio 2.74 RATIO Phenytoin (Dilantin) Level 10.3 MCG/ML Labs reviewed. Vitals/IOs Vital Signs Date Time Temp Pulse Resp B/P Pulse Ox O2 Delivery O2 Flow Rate FiO2 10/12/16 06:09 97.9 115 18 129/82 96 10/10/16 15:27 Room Air Intake and Output 10/11/16 10/11/16 10/12/16 08:00 16:00 00:00 Intake Total 1120 ml Balance 1120 ml Assessment & Plan Problem List: (1) Psychosis Assessment & Plan: Suspect postictal psychosis ICD Code: F29 Assessment & Plan Patient's mental status seems markedly improved today. I do strongly suspect postictal psychosis. Neurology consultation is pending. Appreciate hospitalist building consultant input. EEG is pending. I will adjust patient's Thorazine dosing, decreasing the frequency significantly because patient doesn' t seem to have needed it. Continue other medications and care as ordered. Justification for Cont. Inpt. Concern for possible ongoing impairments in reality testing, although there are none now. Discharge Planning To be determined. Family apparently once placement, but patient's mental status is much improved today and he doesn't really seem to be a behavioral issue. Request HC Surrog/Guard Advoc?: Yes Problem Qualifiers (1) Psychosis: Qualified Code: F28 - Other psychotic disorder not due to substance or known physiological condition Jett Holliday MD Oct 12, 2016 16:16
[2016-10-12 19:22] VITALS: BP 121/65; PULSE 110; RESP 18; O2SAT 99
--- NOTE | 2016-10-12 23:00 | MB ---
cc: BETHANY MANNING MD DATE OF CONSULTATION 10/12/16 REASON FOR CONSULTATION Seizure and management of seizures. HISTORY OF PRESENT ILLNESS This is a 36-year-old male with past medical history of mild cerebral palsy and seizure disorder who presented to the [facility], after the patient was found confused, screaming and yelling at a picture of Martin. The patient states that he has always had delayed milestones of development and he admits to weakness of the right side of the body and he knows that he always has had seizures. He is not certain what kind of seizures these are "Ask my mother" any he denies that there are any warning signs prior to the seizures. He states that his mother had said that over the last two months he has had more frequent seizures, but he is unsure of how frequent those were. During the hospital stay, the nurse states that there was no reported seizure activity. The patient currently is on 400 mg single morning dose daily and he is compliant with medications. REVIEW OF SYSTEMS A 12-point review of systems is negative except for what is stated in the HPI. PAST MEDICAL HISTORY 1. Cerebral palsy 2. Seizures. PAST SURGICAL HISTORY Noncontributory ALLERGIES No known allergies. FAMILY HISTORY Noncontributory. SOCIAL HISTORY Denies smoking, significant alcohol intake or any illicit drugs. PHYSICAL EXAMINATION GENERAL: The patient is awake, alert and oriented to time, person and place. Intact memory, pleasant, cooperative, not in acute distress. HEENT: Atraumatic, normocephalic. Intact hearing. Intact vision. CARDIOVASCULAR: Regular rate and rhythm. No murmurs. RESPIRATORY: Clear to auscultation. No wheezes. EXTREMITIES: Without clubbing, cyanosis or edema, right side is weaker NEUROLOGIC: Awake, alert, oriented to time, person and place. Intact speech. Cranial nerves are grossly intact. Right upper and lower extremity with spastic tone, weakness of right shoulder, abduction, elbow extension and wrist extension. There is extension and finger flexion of 4-/5 right lower extremity 5- hip flexion 4+ knee extension. 5- foot dorsiflexion. Reflexes are 2+ bilateral symmetrical. Plantars are bilateral to downgoing. Sensation is intact bilaterally symmetrical. Cerebellar functions are intact bilateral. Stance and gait is normal. No Romberg sign and not ataxic. IMAGING STUDIES Head CT scan without contrast on 10/09/2016 revealed no acute intracranial process. Abnormal areas of encephalomalacia with complete of the left lateral ventricle and the left parietal deep white matter extending into basal ganglia most likely secondary to remote insult. EEG results are pending. DIAGNOSTIC IMPRESSION 1. Breakthrough seizures with history of seizure disorder 2. Cerebral palsy with residual right-sided weakness PLAN 1. Continue Dilantin at current dose of 400 mg single dose daily in the morning 2. Seizure precautions. 3. Emphasize adherence and compliance to Dilantin 4. May consider repeating Dilantin dose in the four weeks time as an outpatient and follow up with neurology as an outpatient. Thank you for the opportunity to participate in the care of your patient. MD PEDRO Augustin/ /8:36 PM /10:48 PM
[2016-10-13] MEDS: LORazepam 2 MG TAB PO PRN (02:37)
[2016-10-13 05:34] VITALS: BP 144/89; PULSE 94; RESP 16; TEMP 98.1; O2SAT 98
--- NOTE | 2016-10-13 07:26 | MG ---
cc: MARCIAL GARNER Sex: [id number] INTRODUCTION: A 36-year-old, confusion, yelling, cerebral palsy, seizures. MEDICATIONS: Dilantin DESCRIPTION: A 10 hertz 60 microvolt symmetric posterior rhythm is seen. The recording overall is synchronous and symmetric. Photic stimulation is performed without significant posterior driving. No hemisphere asymmetries are noted. Some mild diffuse theta slowing is seen. The patient was drowsy toward the end. Hyperventilation was performed without significant background changes. IMPRESSION Essentially normal awake and drowsy EEG. No evidence for focal or diffuse abnormality. MD JENNIFER Bass/MAHSA /7:13 AM 7:19 AM
[2016-10-13] MEDS ORDERED: POTASSIUM CHLORIDE 10 MEQ CONTROLLED RELEASE TAB PO ONE (08:15)
[2016-10-13] MEDS: PHENYTOIN SODIUM 100 MG CAP PO SCH (08:53)
--- NOTE | 2016-10-13 09:38 | HHI.PYPN ---
Subjective Remarks Patient seen and examined with nursing staff. Chart reviewed. Case discussed with nursing staff reports patient has had no problematic behaviors. On my examination today, the patient denies any suicidal or homicidal ideation. He denies any side effects from medications. He denies any audiovisual hallucinations but does endorse some feelings of thought manipulation noting "some people are messing with my thoughts. I can't really explain it. Sometimes people pretend they're your friend and have someone sit down next to you and say something rude." Patient is receptive to trying a low-dose of a scheduled antipsychotic for residual psychotic symptoms. I discussed collateral from mother last night. Patient is open to assisted living placement. Review of Systems Other No reported physical complaints. No ictal activity. Objective Alert: Yes [place]: Person, Place, Date Mood: Calm Affect: Other (again full and reactive) Memory Intact: Comment (seems fairly intact on clinical exam) Hallucinations: Other (no AVH) Delusions: Yes Delusion Type: Other (possibly some feelings of thought manipulation as noted above) Suicidal: Ideation (again denies SI) Homicidal: Ideation (denies HI) Insight/Judgement Fair Remarks Thought process linear. Speech within normal limits for rate, tone and volume. No motor abnormalities noted. Labs Labs reviewed. No new labs. Vitals/IOs Vital Signs Date Time Temp Pulse Resp B/P Pulse Ox O2 Delivery O2 Flow Rate FiO2 10/13/16 05:34 98.1 94 16 144/89 98 10/10/16 15:27 Room Air Intake and Output 10/12/16 10/12/16 10/13/16 08:00 16:00 00:00 Intake Total 3256 ml Output Total 600 ml Balance 2656 ml Assessment & Plan Problem List: (1) Psychosis ICD Code: F29 Assessment & Plan Add low-dose Abilify for residual psychotic symptoms. Discontinue the Thorazine PRN as there really seems no indication for it at this point. Neurology consultation noted and appreciated. EEG results reviewed. I have asked nursing staff to contact physical therapy about getting the patient a brace for his right hand. Continue other medications and care as ordered. Patient may sign voluntary. Justification for Cont. Inpt. Monitoring for impairments in reality testing. Medication changes. 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
[2016-10-13] MEDS: ARIPiprazole 5 MG TAB PO SCH (09:39)
[2016-10-13] MEDS: ALUMINUM/MAGNESIUM/SIMETH 30 ML CUP PO PRN ×2 (09:40→23:27)
--- NOTE | 2016-10-13 14:03 | RADRPT ---
EXAM DATE/TIME: 10/13/2016 13:18 [place] COMPARISON: No previous studies available for comparison. INDICATIONS : Acute renal failure. MEDICAL HISTORY : Seizures. Hallucinations. Cerebral palsy. SURGICAL HISTORY : None. ENCOUNTER: Initial ACUITY: 2 days PAIN SCORE: 0/10 LOCATION: Bilateral flank MEASUREMENTS: RIGHT KIDNEY: 10.6 x 5.8 x 6.1 cm LEFT KIDNEY: 10.6 x 6.0 x 5.1 cm FINDINGS: RIGHT KIDNEY: Renal cortex is normal in thickness and echotexture. No hydronephrosis, stone, or mass. LEFT KIDNEY: Renal cortex is normal in thickness and echotexture. No hydronephrosis, stone, or mass. BLADDER: Within normal limits given the degree of distension. CONCLUSION: Normal examination. Micha Yoon MD on October 13, 2016 at 14:01 Board Certified Radiologist. This report was verified electronically.
--- NOTE | 2016-10-13 14:52 | HHI.PR ---
Blank section for building Chart reviewed. leukocytosis and renal function improving with oral hydration likely related to dehydration. Renal ultrasound reviewed normal exam. Potassium noted below at 3.3 replaced times one. Patient is on his Dilantin for seizure prevention also followed by neurology. Patient appears medically stable we'll sign off if patient's condition changes or further assistance is needed please reconsult. Briseida Slater Oct 13, 2016 14:52
[2016-10-13 19:34] VITALS: BP 168/101; PULSE 91; RESP 18; TEMP 98.9; O2SAT 99
[2016-10-14 06:13] VITALS: BP 148/96; PULSE 82; RESP 18; TEMP 98.8; O2SAT 98
[2016-10-14] MEDS: PHENYTOIN SODIUM 100 MG CAP PO SCH (08:28)
[2016-10-14] MEDS: ARIPiprazole 5 MG TAB PO SCH (08:28)
--- NOTE | 2016-10-14 10:38 | HHI.PYPN ---
Subjective Remarks Patient seen and examined with counselor Farheen. Chart reviewed. Case discussed with nursing staff who reports patient has been no behavioral problem. On my examination today, thought processes logical and linear. He has no evidence of ongoing psychosis. He is hopeful for assisted living placement. He denies side effects from medications. Review of Systems Other Complains of some indigestion but otherwise has no somatic complaints Objective Alert: Yes [place]: Person, Place, Date Mood: Calm Affect: Euthymic Memory Intact: Comment (intact) Hallucinations: Other (no AVH) Delusions: No Delusion Type: Other (no delusional material) Suicidal: Ideation (no SI) Homicidal: Ideation (no HI) Insight/Judgement Fair Remarks No new abnormal motor movements noted. Thought process linear. Speech within normal limits for rate, tone and volume. Labs Labs reviewed. No new labs. Vitals/IOs Vital Signs Date Time Temp Pulse Resp B/P Pulse Ox O2 Delivery O2 Flow Rate FiO2 10/14/16 06:13 98.8 82 18 148/96 98 10/10/16 15:27 Room Air Intake and Output 10/13/16 10/13/16 10/13/16 07:59 15:59 23:59 Intake Total 60 ml 720 ml Balance 60 ml 720 ml Assessment & Plan Problem List: (1) Psychosis ICD Code: F29 Assessment & Plan Add PPI for c/o dyspepsia. Continue other medications and care as ordered. Justification for Cont. Inpt. Risk for decompensation. 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
[2016-10-14] MEDS: LORazepam 2 MG TAB PO PRN (16:21)
[2016-10-14 17:26] LABS: HEMOGLOBIN A1b 1.7 %; HEMOGLOBIN LA1C 2.4 %; HEMOGLOBIN P3 3.6 %
[2016-10-14 18:45] VITALS: BP 150/94; PULSE 86; RESP 17; TEMP 98; O2SAT 99
[2016-10-14] MEDS: ALUMINUM/MAGNESIUM/SIMETH 30 ML CUP PO PRN (19:14)
[2016-10-14] MEDS: ACETAMINOPHEN 325 MG TAB PO PRN (21:23)
[2016-10-15] MEDS: ALUMINUM/MAGNESIUM/SIMETH 30 ML CUP PO PRN ×3 (01:16→22:55)
[2016-10-15 06:00] VITALS: BP 146/74; PULSE 96; RESP 20; TEMP 97.6; O2SAT 98
[2016-10-15] MEDS: PHENYTOIN SODIUM 100 MG CAP PO SCH (09:14)
[2016-10-15] MEDS: PANTOPRAZOLE SOD 40 MG DELAYED RELEASE TAB PO SCH (09:15)
[2016-10-15] MEDS: ARIPiprazole 5 MG TAB PO SCH (09:15)
[2016-10-15] MEDS: ACETAMINOPHEN 325 MG TAB PO PRN ×2 (09:16→19:39)
--- NOTE | 2016-10-15 13:48 | HHI.PYPN ---
Subjective Remarks Patient seen and examined with counselor and occupational therapist. Chart reviewed. Case discussed in treatment team with counselor, occupational therapist and nursing staff. On my examination today, patient presents as somewhat neurotic and anxious. He is ambivalent about assisted living placement versus some other sort of disposition, although he does admit that he has not lived on his own in some time. No SI or HI. Denies side effects from medications. No other issues noted. Review of Systems Other Complains of some ongoing indigestion. Started on Protonix. No other physical complaints. Objective Alert: Yes [place]: Person, Place, Date Mood: Anxious Affect: Other (full and reactive) Memory Intact: Comment (intact) Hallucinations: Other (none) Delusions: No Delusion Type: Other (no delusions) Suicidal: Ideation (no SI) Homicidal: Ideation (no HI) Insight/Judgement Fair at best Remarks No abnormal motor movements noted Labs Labs reviewed Vitals/IOs Vital Signs Date Time Temp Pulse Resp B/P Pulse Ox O2 Delivery O2 Flow Rate FiO2 10/14/16 18:45 98.0 86 17 150/94 99 Intake and Output 10/14/16 10/14/16 10/14/16 07:59 15:59 23:59 Intake Total 0 ml Balance 0 ml Assessment & Plan Problem List: (1) Psychosis ICD Code: F29 Assessment & Plan Psychosis seemingly resolved. Continue current psychotropics as ordered. Continue other medications and care as ordered. Justification for Cont. Inpt. Risk for decompensation Discharge Planning Placement? 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
[2016-10-15 18:00] VITALS: BP 153/95; PULSE 93; RESP 19; TEMP 98; O2SAT 97
[2016-10-15] MEDS: LORazepam 2 MG TAB PO PRN (23:11)
[2016-10-16 05:52] VITALS: BP 113/97; PULSE 89; RESP 18; TEMP 98.7; O2SAT 98
[2016-10-16] MEDS: PANTOPRAZOLE SOD 40 MG DELAYED RELEASE TAB PO SCH (08:57)
[2016-10-16] MEDS: ARIPiprazole 5 MG TAB PO SCH (08:58)
[2016-10-16] MEDS: PHENYTOIN SODIUM 100 MG CAP PO SCH (08:58)
--- NOTE | 2016-10-16 11:52 | HHI.PYPN ---
Subjective Remarks Patient seen and examined with counselor. Chart reviewed. Case discussed with nursing staff. On my examination today, the patient remains a little bit anxious but no evidence of any ongoing psychosis. He denies any SI or HI. We discussed his goals for the future including strength training to try to optimize musculature in the setting of cerebral palsy. Denies side effects from medications. No other issues noted. Remains agreeable to placement. Review of Systems Other no physical complaints today. Objective Alert: Yes [place]: Person, Place, Date Mood: Anxious (mild) Affect: Other (full and reactive) Memory Intact: Comment (intact) Hallucinations: Other (no AVH) Delusions: No Delusion Type: Other (no evident delusional material) Suicidal: Ideation (no SI) Homicidal: Ideation (no HI) Insight/Judgement Fair Remarks Thought process linear Labs Labs reviewed. No new labs. Vitals/IOs Vital Signs Date Time Temp Pulse Resp B/P Pulse Ox O2 Delivery O2 Flow Rate FiO2 10/16/16 05:52 98.7 89 18 113/97 98 Assessment & Plan Problem List: (1) Psychosis Assessment & Plan: Improved ICD Code: F29 Assessment & Plan Continue current psychotropics as ordered. Continue other medications and care as ordered. Justification for Cont. Inpt. Discharge planning Discharge Planning Anticipate transition to [facility] tomorrow. 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
[2016-10-16 19:26] VITALS: BP 147/79; PULSE 84; RESP 16; TEMP 99.4; O2SAT 97
[2016-10-16] MEDS: ACETAMINOPHEN 325 MG TAB PO PRN (19:45)
[2016-10-17] MEDS: LORazepam 2 MG TAB PO PRN (06:19)
[2016-10-17 06:24] VITALS: BP 160/92; PULSE 86; RESP 18; TEMP 98.5; O2SAT 96
[2016-10-17] MEDS: PANTOPRAZOLE SOD 40 MG DELAYED RELEASE TAB PO SCH (08:38)
[2016-10-17] MEDS: ARIPiprazole 5 MG TAB PO SCH (08:38)
[2016-10-17] MEDS: PHENYTOIN SODIUM 100 MG CAP PO SCH (08:39)
[2016-10-17] MEDS ORDERED: PANT40TA3 PO (11:34)
[2016-10-17] MEDS ORDERED: PHEN100C PO (11:34)
[2016-10-17] MEDS ORDERED: ARIP1TAB11 PO (11:34)
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
== END 2016-10-17 14:55 | DRG 885 ==
LOC: NEPE 13:38 → NEDA 10-10 14:08 → H270 10-10 16:00
PROVIDERS: ADMIT Psychiatry & Neurology Psychiatry; ATTEND Psychiatry & Neurology Psychiatry
DX: F28 Other psychotic disorder not due to a substance or known physiological condition (principal); N17.9 Acute kidney failure, unspecified; G93.89 Other specified disorders of brain; Z78.1 Physical restraint status; G40.909 Epilepsy, unspecified, not intractable, without status epilepticus; G80.9 Cerebral palsy, unspecified; D72.829 Elevated white blood cell count, unspecified; M79.89 Other specified soft tissue disorders; E86.0 Dehydration
CPT/HCPCS: 70450; 73130; 76775; 80048; 80053; 80061; 80185; 80301; 81001; 82550; 83036; 84443; 85025; 93005; 95819; 96361; 96372; 96374; 96376; G0479; J1200; J1630; J2060; J3230; J7030; Q0163